=== PATIENT | female | born 1960 | race Caucasian/White ===

== ENCOUNTER → 2020-10-12 | Day surgery (SDC) | payer BC ==
[~2020-10-12] VITALS: Ht 157.5 cm; Wt 74.8 kg
[~2020-10-12] MED LIST: HYDROMORPHONE HCL/PF 2MG/ML CPJ IV PRN; LABETALOL 5MG/ML SYR 20 MG/4 ML SYRINGE IV PRN; LACTATED RINGERS 1,000 ML IV SCH; LOSA50TA41 PO; MEPERIDINE HCL/PF 25MG/ML CPJ IV PRN; MESA1.2T3 PO; METOCLOPRAMIDE HCL 10MG/2ML VIAL IV NR; MULT-622 MT; ROCURONIUM BROMIDE 10MG/ML VIAL 5ML IV ONE; SCOPOLAMINE HYDROBROMIDE PATCH 72HR TD NR
[2020-10-12 16:10] VITALS: BP 152/74
[2020-10-12] MEDS: ONDANSETRON HCL 4MG/2ML INJ IV PRN ×2 (17:47→18:07)
== END | disposition home or self-care (01) ==
LOC: OR 11:30
PROVIDERS: ATTEND Specialist
DX: K80.10 Calculus of gallbladder with chronic cholecystitis without obstruction (principal); I10 Essential (primary) hypertension; Z79.899 Other long term (current) drug therapy; Z98.890 Other specified postprocedural states; Z88.8 Allergy status to other drugs, medicaments and biological substances
CPT/HCPCS: 47562; 88304; 93005; J1170; J2405; J2765; J3490; S2900